=== PATIENT | female | born 1940 | race Caucasian/White ===

== ENCOUNTER → 2024-05-29 10:57 | Outpatient (REF) | payer OTHER, SELFPAY | LOC: HWWDC 10:57 | PROVIDERS: ATTENDING PHYSICIAN Nurse Practitioner Family; FAMILY PHYSICIAN Nurse Practitioner | DX: Z12.31 Encounter for screening mammogram for malignant neoplasm of breast (principal) | CPT/HCPCS: 77063; 77067 ==

== ENCOUNTER → 2025-06-18 11:06 | Outpatient (REF) | payer OTHER, SELFPAY | LOC: HWWDC 11:06 | PROVIDERS: ATTENDING PHYSICIAN Internal Medicine | DX: Z12.31 Encounter for screening mammogram for malignant neoplasm of breast (principal) | CPT/HCPCS: 77063; 77067 ==

== ENCOUNTER 2025-11-02 14:54 | Inpatient (IN) | payer OTHER, SELFPAY ==
[2025-11-02 10:44] VITALS: BP 131/73
--- NOTE | 2025-11-02 10:45 | ED.GENMED ---
History of Present Illness
<Leila Hammer PA-C - Last Filed: 11/02/25 16:31>
General
Chief Complaint: Musculo-Skeletal Complaint
Source: patient
Exam Limitations: none
Time Seen by Provider: 11/02/25 10:34
History of Present Illness
History of Present Illness:
85yoF with no significant past medical history presenting via EMS for evaluation after a fall about 1 hour ago. Patient was walking from her foyer to the kitchen. There is a step that she has to go over. She states she turned quickly and lost her
balance and fell. She denies any head strike or loss of consciousness. Patient to crawl to her front door and her neighbors called EMS. She is currently complaining of left shoulder and left hip pain. She received IV fentanyl prehospital with
improvement. She is otherwise asymptomatic and denies any headache, neck pain, shortness of breath, pleuritic pain, abdominal pain, low back pain, paresthesias. She does not take any blood thinners.
Phy Exam
<Leila Hammer PA-C - Last Filed: 11/02/25 16:31>
General Physical Exam
General Presentation: well appearing and no apparent distress
General Skin: warm and dry
General Habitus: normal and elderly
General Mental: alert
ENT Exam
ENT Exam: normocephalic and other (No external signs of head trauma. No cervical spine tenderness.)
Cardiovascular Exam
Cardiovascular Exam: normal peripheral pulses (2+ DP pulses bilaterally)
Pulmonary Exam
Pulmonary Exam: lungs clear, no respiratory distress, no rales, chest non tender, no crackles, no rhonchi and no wheezing
Neurological Exam
Neurological Exam: alert
[place] Coma Scale
Eye Opening: Spontaneous
Verbal Response: Oriented
Motor Response: Obeys Commands
GCS Total Score: 15
Musculoskeletal Exam
Musculoskeletal Exam: other (+Tenderness to L buttock. No skin changes. ROM of L hip normal.)
Skin Exam
Skin Exam: normal color and warm/dry
Psychiatric Exam
Psychiatric Exam: normal mood/affect
Course
<Leila Hammer PA-C - Last Filed: 11/02/25 16:31>
Orders/Labs/Results
Orders:
Orders
11/02/25 10:44
CR Femur - Left Min 2 Vw Urgent
Comment:
Reason For Exam: L hip pain, fall
CR Pelvis Comp Min 3 Views Urgent
Reason For Exam: L hip pain, fall
CR Shoulder - Left Min 2 View* Urgent
Comment:
Reason For Exam: pain, fall
11/02/25 12:18
CT Head W/o Iv Contrast Urgent
Comment:
Reason For Exam: headache, fall
11/02/25 13:01
Pt Eval And Treat Urgent
Activity Level: Out of Bed- Ad Glenda
11/02/25 13:58
Case Management Consult ONCE
Case Management Consult: Discharge Planning
11/02/25 14:07
Acetaminophen [Tylenol] 1,000 mg PO NOW STA
11/02/25 14:22
Admit/Transfer Patient As Directed
Co-Sign Provider:
Level of Care: Inpatient admission
Assign to:: Medical/Surgical
Physician / Group: hospitalist
Diagnosis: Left pubic rami fracture
Reason for Hospitalization: Left pubic rami fracture
Expected length of stay greater than two midnights?: Yes
ELOS- Estimated Length of Stay in days: 3
I certify the patient meets the requirements for IP care: Yes
11/02/25 14:23
Code Status As Directed
Resuscitation Status: Do not resuscitate
Reached after discussion with pt or family/Healthcare POA: Yes
11/02/25 14:24
DNR Bracelet Application ONCE
11/02/25 14:42
Complete Blood Count/With Diff Urgent
Comprehensive Metabolic Panel Urgent
Abnormal Lab Results
11/02/25
14:42
WBC 13.9 H 10^3/uL
(4.8-10.8)
Abs Immat Gran (auto) 0.1 H 10^3/uL
(0-0.05)
Absolute Neuts (auto) 12.7 H 10^3/uL
(1.4-6.5)
Absolute Lymphs (auto) 0.4 L 10^3/uL
(1.2-3.4)
Absolute Monos (auto) 0.7 H 10^3/uL
(0.1-0.6)
Immature Gran % 0.8 H %
(0-0.5)
Neutrophils % 91.3 H %
(42.2-75.2)
Lymphocytes % 2.9 L %
(20.5-51.1)
BUN 20 H mg/dl
(7-17)
Glucose 102 H mg/dl
(70-99)
11/02/25 14:42
11/02/25 14:42
Vital Signs
Initial and Last Documented VS:
Initial Vital Signs
Temp Pulse Resp BP Pulse Ox
97.3 F 80 17 131/73 95
11/02/25 10:44 11/02/25 10:44 11/02/25 10:44 11/02/25 10:44 11/02/25 10:44
Last Documented Vital Signs
Temp Pulse Resp BP Pulse Ox
97.3 F 80 17 131/73 94
11/02/25 10:44 11/02/25 10:44 11/02/25 10:44 11/02/25 10:44 11/02/25 16:15
<Hugo Faustin MD - Last Filed: 11/02/25 14:14>
Orders/Labs/Results
Orders:
Orders
11/02/25 10:44
CR Femur - Left Min 2 Vw Urgent
Comment:
Reason For Exam: L hip pain, fall
CR Pelvis Comp Min 3 Views Urgent
Reason For Exam: L hip pain, fall
CR Shoulder - Left Min 2 View* Urgent
Comment:
Reason For Exam: pain, fall
11/02/25 12:18
CT Head W/o Iv Contrast Urgent
Comment:
Reason For Exam: headache, fall
11/02/25 13:01
Pt Eval And Treat Urgent
Activity Level: Out of Bed- Ad Glenda
11/02/25 13:58
Case Management Consult ONCE
Case Management Consult: Discharge Planning
11/02/25 14:07
Acetaminophen [Tylenol] 1,000 mg PO NOW STA
11/02/25 14:22
Admit/Transfer Patient As Directed
Co-Sign Provider:
Level of Care: Inpatient admission
Assign to:: Medical/Surgical
Physician / Group: hospitalist
Diagnosis: Left pubic rami fracture
Reason for Hospitalization: Left pubic rami fracture
Expected length of stay greater than two midnights?: Yes
ELOS- Estimated Length of Stay in days: 3
I certify the patient meets the requirements for IP care: Yes
11/02/25 14:23
Code Status As Directed
Resuscitation Status: Do not resuscitate
Reached after discussion with pt or family/Healthcare POA: Yes
11/02/25 14:24
DNR Bracelet Application ONCE
11/02/25 14:42
Complete Blood Count/With Diff Urgent
Comprehensive Metabolic Panel Urgent
Abnormal Lab Results
11/02/25
14:42
WBC 13.9 H 10^3/uL
(4.8-10.8)
Abs Immat Gran (auto) 0.1 H 10^3/uL
(0-0.05)
Absolute Neuts (auto) 12.7 H 10^3/uL
(1.4-6.5)
Absolute Lymphs (auto) 0.4 L 10^3/uL
(1.2-3.4)
Absolute Monos (auto) 0.7 H 10^3/uL
(0.1-0.6)
Immature Gran % 0.8 H %
(0-0.5)
Neutrophils % 91.3 H %
(42.2-75.2)
Lymphocytes % 2.9 L %
(20.5-51.1)
BUN 20 H mg/dl
(7-17)
Glucose 102 H mg/dl
(70-99)
11/02/25 14:42
11/02/25 14:42
Vital Signs
Initial and Last Documented VS:
Initial Vital Signs
Temp Pulse Resp BP Pulse Ox
97.3 F 80 17 131/73 95
11/02/25 10:44 11/02/25 10:44 11/02/25 10:44 11/02/25 10:44 11/02/25 10:44
Last Documented Vital Signs
Temp Pulse Resp BP Pulse Ox
97.3 F 80 17 131/73 94
11/02/25 10:44 11/02/25 10:44 11/02/25 10:44 11/02/25 10:44 11/02/25 16:15
Constanzalt;Leila Hammer PA-C - Last Filed: 11/02/25 16:31>
MDM/Problems Addressed
Differential Diagnosis Includes:
85yoF here with L hip and L shoulder pain after a fall. Denies head injury or LOC. VSS. Patient is awake, alert with a GCS of 15. No deformity noted to L hip and ROM normal. Differential diagnosis includes: hip fracture, hip dislocation, pelvic
fracture
Initial ED plan: Check pelvic/L femur x-rays and L shoulder x-rays.
<Leila Hammer PA-C - Last Filed: 11/02/25 16:31>
*Pulse Oximetry
Patient hypoxic: no
*Critical Care Note
Total Time (30-74mins, 75-104mins- exclusive of procedures): Not Applicable
<Leila Hammer PA-C - Last Filed: 11/02/25 16:31>
Update Note
Update Note:
X-rays show L superior and inferior pubic rami fractures. She is now complaining of a headache on reassessment. She denies head strike but head CT ordered for completeness which is negative. Patient evaluated by PT and was unable to stand due to
pain. Short term rehab recommended. Patient admitted pending placement.
ED Attending Note
<Leila Hammer PA-C - Last Filed: 11/02/25 16:31>
-
Portions of this chart may have been created with voice recognition software.� Occasional wrong word or��sound alike� substitutions may have occurred due to the inherent limitations of voice recognition software.
<Hugo Faustin MD - Last Filed: 11/02/25 14:14>
ED Attending Note
Patient seen and examined by attending physician: Yes
I performed the substantive portion of visit, reviewed & personally made and approve the management plan that is documented in note by myself or SARIKA.: Yes
ED Attending Note:
85-year-old female fell causing pelvic pain and left shoulder pain. No LOC. Does not initially think she hit her head but has some mild headache. No chest pain shortness of breath abdominal pain or other complaints. On exam patient is elderly
and frail nontoxic. Normocephalic atraumatic. Neck is supple. No focal spinal tenderness. No chest wall tenderness no respiratory distress abdomen nontender. Pelvis is tender to compression. Pain with left hip rotation. Right lower extremity
normal. Tenderness at the left proximal humerus with decreased rotation and abduction.
Impression pelvic fracture. Unable to ambulate. Admitted for pain management rehab. Left shoulder with no obvious fracture but very tender. Either occult fracture, possible rotator cuff injury.
Discharge Plan
Departure
Patient Disposition: Admit
Date of Disposition: 11/02/25
Time of Disposition: 14:09
Presentation/result/management discussed w/ accepting MD/DO: Hospitalist
Discharge Problem:
Fracture of multiple pubic rami, Ground-level fall, Ambulatory dysfunction
Interventions
Interventions:
*General Assessment Last Done: 11/02/25 11:43
*Neglect/Abuse Screening Last Done: 11/02/25 11:43
*ED Influenza Vaccine History Last Done: 11/02/25 11:43
[facility] Fall Risk Assessment Tool Last Done: 11/02/25 10:31
ED-Musculoskeletal Assessment Last Done: 11/02/25 11:43
[2025-11-02 14:01] VITALS: BP 118/77; BP 136/78; O2SAT 96
--- NOTE | 2025-11-02 14:26 | HPS.HSE ---
Family Physician
-
Family Physician: Ashli Coughlin DO
Chief Complaint
-
fall
History of Present Illness
85-year-old female with no significant past medical history presents after a fall. Patient lives in a personal home and she was walking in the living room when she stepped over a rock and since fell on her left side. She did not hit her head or
lose consciousness. She was on the floor for 15 minutes she crawled towards her front door to call out for help and her neighbors called EMS. She reports of left hip pain and left shoulder pain.
Upon arrival to the ED, patient is hemodynamically stable, pelvic x-ray shows left pubic superior inferior rami fracture nondisplaced. Femur x-ray and shoulder x-ray were unremarkable with no acute fractures or dislocation.
Medical History
Past Medical History
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
Past Surgical History: Reports None
Social History
Tobacco: Non-smoker
Alcohol: None
Drug: None
Personal: Single
Living: Alone
Employment: Retired
Family History
Family History: Not pertinent
Allergies / Home Medications
Allergies reflects when Allergies were last updated in [facility].
Home Medications with original date entered in [facility]
Allergy/Medication List:
Allergies
Allergy/AdvReac Type Severity Reaction Status Date / Time
No Known Allergies Allergy Unverified 10/12/09 10:39
Home Medications
biotin 10 mg tablet 10 mg PO DAILY 11/02/25
clobetasol 0.05 % scalp solution 1 applic topical DAILY 11/02/25
latanoprost 0.005 % eye drops 1 drp BOTH EYES HS 11/02/25
kkihaady-mvjq-xyvh 8 mg-folic 400 mcg-K 50 mcg-lutein 300 mcg tablet (Centrum Silver Women) 1 tab PO DAILY 11/02/25
turmeric 400 mg capsule 400 mg PO DAILY 11/02/25
Review of Systems
-
History Source: Patient
A 12 point ROS was completed and negative except as noted: Yes
Physical Exam
Vital Signs
Vital Signs
Temp Pulse Resp BP Pulse Ox
97.3 F 80 17 131/73 95
11/02/25 10:44 11/02/25 10:44 11/02/25 10:44 11/02/25 10:44 11/02/25 10:44
Physical Exam
General: Comfortable and Conversant
HEENT: NormoCephalic and Anicteric
Respiratory: Clear
Cardiac: S1/S2 and Regular Rhythm
GI: Soft, Non Tender, Non Distended and Normal Bowel Sounds
Musculoskeletal: Other (pain with any movement of left leg, no obvious injuries )
Skin: Warm and Dry
Neuro: AO x 3
Hematologic/Lymphatic: No Lymphadenopathy
Psych: Calm
Data Reviewed
-
Diagnostic Radiology: Report Reviewed by me and Discussed with Physician
Lab Data: Labs Reviewed by me and Discussed with Physician
Impression/Plan
-
IMPRESSION:
Nondisplaced left pubic superior inferior rami fracture
PLAN:
Nondisplaced left pubic superior inferior rami fracture
Mechanical fall
Patient is hemodynamically stable
Pain control with Tylenol, ibuprofen if renal function is ok
Oxycodone 5 mg PO prn for severe pain
Non weight bearing.
PT/OT
DNR
regular diet
SCD
[2025-11-02] MEDS: TYLENOL 1000 MG PO (14:34)
--- NOTE | 2025-11-02 14:42 | EDCM ---
Reviewed chart and met with pt bedside in ED. Pt has pelvic fracture after fall at home. No PMH.
Lives alone in split level home, [address], has bedroom and full bath on main level, bathroom has walk in shower.
Independent in ADLs, personal care and ambulation at baseline, does not use assistive device but does have SPC and RW.
Confirms prescription coverage.
No hx VN or SNF.
Seen by PT, recommending [facility] at SNF. Discussed with pt, has a family member who works at [employer], this is her first choice. Agreeable to referrals to [facility]. Referrals placed in [facility]. Will need auth.
Pt asked about acute rehab, discussed PT recommendation of [facility] and she is agreeable.
Anticipate discharge to [facility], CM will continue to follow for all discharge planning needs.
[2025-11-02 15:04] LABS: Hematocrit 40.3 % (37.0-47.0); Hemoglobin 13.7 g/dL (12.0-16.0); Mean Corp Hgb Conc. 34.0 g/dL (33.0-37.0); Mean Corpuscular Volume 90.2 fL (81.0-99.0); Nucleated Red Blood Cells % 0 %; Platelet Count 181 10^3/uL (130-400); Red Cell Dist. Width 13.2 % (11.5-14.5)
[2025-11-02 15:18] LABS: ALT (SGPT) 21 U/L (0-35); AST (SGOT) 32 U/L (14-36); Albumin 3.9 g/dl (3.5-5.0); Alkaline Phosphatase 76 U/L (38-126); Blood Urea Nitrogen 20 mg/dl (7-17); Calcium 9.1 mg/dl (8.4-10.2); Carbon Dioxide 25 mmol/L (22-30); Chloride 107 mmol/L (98-107); Glucose 102 mg/dl (70-99); Potassium 4.1 mmol/L (3.5-5.1); Sodium 138 mmol/L (135-145); Total Protein 6.7 g/dl (6.3-8.2); eGFR > 60.00
--- NOTE | 2025-11-02 15:54 | W.PN.UPDATE ---
Update Note
Progress Note Update
Attending note
Patient seen independently
85-year-old woman with no significant past medical history had a fall. She stepped over a rock and fell on her left side. She did not hit her head or lose consciousness. She was on the floor for 15 minutes. She reports of left hip pain and left
shoulder pain. Pelvic x-ray shows left pubic superior inferior rami fracture nondisplaced. Femur x-ray and shoulder x-ray were unremarkable with no acute fractures or dislocation.
Past Medical History
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
Physical Exam
General: Comfortable and Conversant
HEENT: NormoCephalic and Anicteric
Respiratory: Clear
Cardiac: S1/S2 and Regular Rhythm
GI: Soft, Non Tender, Non Distended
Psych: Calm
IMPRESSION:
Nondisplaced left pubic superior inferior rami fracture
PLAN:
1. Nondisplaced left pubic superior inferior rami fracture after a Mechanical fall
Patient is hemodynamically stable
Pain control with Tylenol
Oxycodone 5 mg PO prn for severe pain
Non weight bearing.
PT/OT
Rehab after PT eval
Code: DNR
regular diet
SCD for DVTp
[2025-11-02 17:02] VITALS: BP 143/83
[2025-11-02 17:03] VITALS: BMI 26.6
--- NOTE | 2025-11-02 18:01 | PTCARENOTE ---
Pt arrived to unit around 1700 this shift. She was a pullover from stretcher to bed. Pain reported when moved, Pt states that she has no pain when laying still. VSS. SCDs initiated. Pillows put under BLLEs. Pt oriented to room and staff. Family at
bedside. Orders and POC reviewed with family and patient. Plan of care ongoing.
[2025-11-02 23:08] VITALS: BP 138/77
[2025-11-03] MEDS: TYLENOL 650 MG PO ×2 (01:51→20:01)
[2025-11-03 07:53] VITALS: BP 120/64
--- NOTE | 2025-11-03 11:13 | CM ---
Received a call from Salima at [facility] that she is accepted for admission
ED CM provided her current CM contact information
[2025-11-03] MEDS: ROXICODONE 5 MG PO (11:37)
--- NOTE | 2025-11-03 12:00 | CM ---
spoke with Salima from [facility] [phone]
referral in careport accepted
PT/OT to eval - will need auth
YASH MATOS NPI #: [id number]
Dr. Jerel Guerra NPI #: [id number]
tt hospitalist
PLAN: [facility], when stable, will need auth
[2025-11-03 12:49] VITALS: BP 120/71; BP 155/73; BP 69/41; PULSE 61; PULSE 83
[2025-11-03 12:55] VITALS: BP 120/71; BP 155/73; BP 76/41; PULSE 61; PULSE 84; O2SAT 93
[2025-11-03 15:44] VITALS: BP 112/63
--- NOTE | 2025-11-03 15:59 | W.PN.HOSP.TC ---
Today's Communication/Plan
-
See plan
Assessment / Plan
Assessment / Plan
Impression
Acute nondisplaced fractures of left superior and inferior pubic rami secondary to mechanical fall and osteoporosis.
Orthostatic hypotension
Fever
Plan
Mechanical fall with fracture of the left superior inferior pubic rami.
X-rays reviewed with orthopedics.
No surgical intervention required.
Continue TDWB on the left
Physical/Occupational Therapy assessment
Rehab planning
Orthostatic hypotension.
Possibly related to pain medications.
Recheck labs CBC/BMP.
IV fluid challenge.
Fever. 100.5
Other than left-sided mild headache patient has no particular complaints indicative of source.
Check urinalysis and reflex to culture.
Pending CBC follow-up
Monitor closely off antibiotics
Anticipated Discharge: 24 - 48 hours
Subjective/Interval History
-
Date of Service: November 03, 2025
Objective Data
-
Labs:
Laboratory Results
11/03/25
14:51
WBC Pending
Hgb Pending
Hct Pending
Plt Count Pending
Sodium Pending
Potassium Pending
Chloride Pending
Carbon Dioxide Pending
BUN Pending
Creatinine Pending
Glucose Pending
Calcium Pending
Vital Signs:
Vital Signs
Temp Pulse Resp BP Pulse Ox
100.5 F H 79 16 112/63 93
11/03/25 15:44 11/03/25 15:44 11/03/25 15:44 11/03/25 15:44 11/03/25 15:44
I&O
11/02/25 11/03/25 11/04/25
06:59 06:59 06:59
Intake Total 480 / 480
Balance 480 / 480
Physical Exam
-
General: Well Developed and No Apparent Distress
HEENT: Normocephalic, Atraumatic and Moist Mucous Membranes
Respiratory: Clear to Auscultation
Cardiac: Regular Rhythm and S1/S2; Negative Murmur, Rub or Gallop
GI: Soft, Nontender, Nondistended and Normal Bowel Sounds; Negative Organomegaly
Rectal: Deferred by Provider
Musculoskeletal: No Clubbing, No Cyanosis and No Edema
Skin: Negative Rash
Neuro: Nonfocal/Grossly Intact
[2025-11-03] MEDS: NSS 1000 IV (17:04)
[2025-11-03 21:12] LABS: Hematocrit 36.0 % (37.0-47.0); Hemoglobin 12.3 g/dL (12.0-16.0); Mean Corp Hgb Conc. 34.2 g/dL (33.0-37.0); Mean Corpuscular Volume 90.7 fL (81.0-99.0); Nucleated Red Blood Cells % 0 %; Platelet Count 149 10^3/uL (130-400); Red Cell Dist. Width 13.5 % (11.5-14.5)
[2025-11-03 21:21] LABS: Blood Urea Nitrogen 20 mg/dl (7-17); Calcium 8.5 mg/dl (8.4-10.2); Carbon Dioxide 27 mmol/L (22-30); Chloride 103 mmol/L (98-107); Estimated Creatinine Clearance 49 ml/min; Glucose 116 mg/dl (70-99); Potassium 4.0 mmol/L (3.5-5.1); Sodium 132 mmol/L (135-145); eGFR > 60.00
[2025-11-03 23:21] VITALS: BP 114/57
[2025-11-04] MEDS: TYLENOL 650 MG PO ×2 (05:20→22:17)
[2025-11-04 07:32] VITALS: BP 117/65
--- NOTE | 2025-11-04 13:36 | CM ---
Addendum entered by Lavonne Marina 11/04/25 16:02:
Hospitalist would like patient discharged now to be tomorrow
echo ordered, UA
spoke with Narcisa at [facility] & updated & auth information given to her & placed in [facility]port
AUTH APPROVED
Start date 11/05/25 NRD 11/10/25
AUTH #: [id number]
[facility] APPROVAL #: [id number] ( FOR 2 DAYS)
$260 Co-pay for ambulance per Corrine - patient notified
PLAN: [facility] SNF ON 11/05
report #: [phone]
fax #: [phone]
transportation forms on chart, facility request after 3pm transport (nuclear unit operator aware)
Addendum entered by Lavonne Marina 11/04/25 15:35:
CM called insurance [id number] to initiate [facility] SN[facility] auth
tt hospitalist - spoke with Narcisa at [facility] request 6pm transport tonight
IMM explained & signed. In chart
spoke with Corrine at insurance
Original Note:
spoke with Narcisa [phone] from [facility]
can accept today after 6pm or tomorrow
tt hospitalist - per hospitalist would like PT to eval today
will need authorization - await PT to eval
[facility] NPI #: [id number]
Dr. Jerel Guerra NPI #: [id number]
PLAN: [facility] SNF, once auth approved
report #: [phone]
fax #: [phone]
transportation forms on chart
[2025-11-04] MEDS: ROXICODONE 5 MG PO (13:44)
--- NOTE | 2025-11-04 14:15 | W.PN.HOSP.TC ---
Addendum entered and electronically signed by Jules Sosa MD 11/04/25 15:59:
Remains significantly orthostatic with BP down to 103/61 while upright seated in the chair.
Stable hemoglobin.
Possible effect of narcotics.
Will give another liter of normal saline
Check echocardiogram.
Original Note:
Today's Communication/Plan
-
UA and reflex to culture
PT assessment
Analgesia
Discharge plan
Assessment / Plan
Assessment / Plan
Impression
Acute nondisplaced fractures of left superior and inferior pubic rami secondary to mechanical fall and osteoporosis.
Orthostatic hypotension
Fever
Plan
Mechanical fall with fracture of the left superior inferior pubic rami.
X-rays reviewed with orthopedics.
No surgical intervention required.
Continue TDWB on the left
Physical/Occupational Therapy assessment
Rehab planning
Orthostatic hypotension.
Possibly related to pain medications.
Recheck labs CBC/BMP.
IV fluid challenge.
Fever. 100.5 one episode
Other than left-sided mild headache patient has no particular complaints indicative of source. Repots improvement
Otherwise offers no complaints
No leukocytosis
Check urinalysis and reflex to culture, pending
Monitor closely off antibiotics
Anticipated Discharge: Within 24 hours
Subjective/Interval History
-
Date of Service: November 04, 2025
Objective Data
-
Vital Signs:
Vital Signs
Temp Pulse Resp BP Pulse Ox
98.7 F 75 17 117/65 97
11/04/25 07:32 11/04/25 07:32 11/04/25 07:32 11/04/25 07:32 11/04/25 09:00
I&O
11/03/25 11/04/25 11/05/25
06:59 06:59 06:59
Intake Total 480 / 480 1659
Balance 480 / 480 1659
Physical Exam
-
General: Well Developed and No Apparent Distress
HEENT: Normocephalic, Atraumatic and Moist Mucous Membranes
Respiratory: Clear to Auscultation
Cardiac: Regular Rhythm and S1/S2; Negative Murmur, Rub or Gallop
GI: Soft, Nontender, Nondistended and Normal Bowel Sounds; Negative Organomegaly
Rectal: Deferred by Provider
Musculoskeletal: No Clubbing, No Cyanosis and No Edema
Skin: Negative Rash
Neuro: Nonfocal/Grossly Intact
[2025-11-04 15:09] VITALS: BP 142/81
[2025-11-04 15:14] VITALS: BP 138/81; BP 157/89; BP 169/90; PULSE 69; PULSE 91
[2025-11-04 15:16] VITALS: BP 138/81; BP 157/89; BP 169/90; PULSE 91; PULSE 96; O2SAT 93
[2025-11-04] MEDS: NSS 1000 IV (16:50)
--- NOTE | 2025-11-04 18:13 | PTCARENOTE ---
Patient reported to do well with therapy this shift. She got up to the chair, stand and pivot x2 assist. Slightly orthostatic BPs, not symptomatic. Pt was then up in the chair for about 1 hour and rang to tell staff that she was feeling dizzy,
nauseous and appeared to be pale. BP upon assessment was 103/61, HR 75. Pt was assisted back to bed x2 assist - stand and pivot. Shortly after she reported feeling much better. Pain level 5/10. Pt reported to this nurse that she has a history of
passing out when standing for too long, states that she feels like its related to hydration. MD notified. Echo ordered. Discharge pending for tomorrow. Patient and daughter updated at bedside. Plan of care ongoing.
[2025-11-04] MEDS: COLACE 100 MG PO (20:37)
[2025-11-04] MEDS: MIRALAX 17 GRAMS PO (22:21)
[2025-11-04 23:00] VITALS: BP 129/64
[2025-11-05] MEDS: TYLENOL 650 MG PO ×2 (05:35→13:10)
[2025-11-05 07:24] VITALS: BP 127/54
[2025-11-05 08:22] LABS: Urine Character Clear (Clear)
[2025-11-05 08:36] LABS: Urine White Cell 16-20 /HPF (0-5)
--- NOTE | 2025-11-05 09:33 | CM ---
Addendum entered by Nicole Abrams 11/05/25 13:37:
Please change fax number to [phone]
Addendum entered by Nicole Abrams 11/05/25 13:08:
Pt is discharged to [facility]. Will have transport arranged for after 5PM today
Original Note:
Pt is ready for DC to [facility] from CM perspective
[facility] ON 11/05
report #: [phone]
fax #: [phone]
[2025-11-05 10:22] VITALS: BP 127/74; BP 132/85; BP 132/88; BP 139/83; PULSE 88; PULSE 93; O2SAT 95
[2025-11-05 15:00] VITALS: BP 124/76
[2025-11-05 18:26] VITALS: BP 133/67
== END 2025-11-05 19:11 | DRG 536 ==
LOC: 3 WEST ACU 14:54
PROVIDERS: Physician Assistant; ADMITTING PHYSICIAN Internal Medicine; ATTENDING PHYSICIAN Internal Medicine; EMERGENCY PHYSICIAN Emergency Medicine; FAMILY PHYSICIAN Internal Medicine
DX: S32.592A Other specified fracture of left pubis, initial encounter for closed fracture (principal); W01.0XXA Fall on same level from slipping, tripping and stumbling without subsequent striking against object, initial encounter; Z66 Do not resuscitate; R54 Age-related physical debility; Z86.718 Personal history of other venous thrombosis and embolism; M25.552 Pain in left hip; I95.1 Orthostatic hypotension
CPT/HCPCS: 70450; 72190; 73030; 73552; 80048; 80053; 81003; 81015; 85025; 87086; 93306; 97167; 97530; 97535; 99285